=== PATIENT | female | born 1945 | race Caucasian/White ===

== ENCOUNTER 2023-10-17 21:18 | Emergency (ER) | payer OTHER, MEDICARE ==
[2023-10-17 21:37] VITALS: BP 130/80; PULSE 98; RESP 18; TEMP 98.1; BMI 27.4
[2023-10-17] MEDS ORDERED: methylPREDNISolone NA SUCC 125 MG/2 ML VIAL ONE (21:49)
[2023-10-17] MEDS: methylPREDNISolone NA SUCC 125 MG/2 ML VIAL IVPUSH ONE (21:55)
== END 2023-10-18 00:01 | disposition home or self-care (01) ==
LOC: FER 21:18
PROC: 3E033GC Introduction of Other Therapeutic Substance into Peripheral Vein, Percutaneous Approach (ICD-10-PCS; principal; 2023-10-17)
DX: L50.0 Allergic urticaria (principal)
CPT/HCPCS: 99284-25